=== PATIENT | male | born 1955 | race Caucasian/White ===

== ENCOUNTER 2024-05-07 09:09 | Day surgery (SDC) | payer MEDICARE, OTHER ==
[~2024-05-07] VITALS: Ht 177.8 cm; Wt 108.9 kg
[2024-05-07] MEDS ORDERED: Lactated Ringer's 1,000 ML IV ONE (10:30)
[2024-05-07] MEDS ORDERED: ATOR40TA PO (10:35)
[2024-05-07] MEDS ORDERED: METOPROLOL TART5010 PO (10:35)
[2024-05-07] MEDS ORDERED: LOSA50 PO (10:36)
[2024-05-07] MEDS ORDERED: CeFAZolin Sodium 2,000 MG VIAL ONE (10:49)
[2024-05-07] MEDS ORDERED: Midazolam HCl 1MG / ML 2ML Vial ONE (11:09)
[2024-05-07] MEDS ORDERED: propofoL 20 ML IV ONE ×2 (11:25→11:47)
[2024-05-07] MEDS ORDERED: Bupivacaine 0.5% HCl 5 MG/ML 30MLVIAL INJ ONE (11:29)
--- NOTE | 2024-05-07 13:06 | NUR ---
05/07/24 1305 Ulysses Oreilly PT VOIDED PRIOR TO D/C. HE WAS INSTRUCTED TO MONITOR B/P AT HOME AND FOLLOW UP WITH PCP IF NEEDED.
== END 2024-05-07 13:00 | disposition home or self-care (01) ==
LOC: ORSCSDS 09:09
PROVIDERS: Orthopaedic Surgery
PROC: 0RBX0ZX Excision of Left Finger Phalangeal Joint, Open Approach, Diagnostic (ICD-10-PCS; principal; 2024-05-07 11:30)
DX: D48.19 Other specified neoplasm of uncertain behavior of connective and other soft tissue (principal); I10 Essential (primary) hypertension; E78.00 Pure hypercholesterolemia, unspecified; Z79.899 Other long term (current) drug therapy; Z87.891 Personal history of nicotine dependence
CPT/HCPCS: 88305; J0690; J2250; J2704; J7120